=== PATIENT | female | born 1935 | race Two or more races ===

== ENCOUNTER 2016-11-28 02:08 | Emergency (ER) | payer OTHER ==
[~2016-11-28] VITALS: Ht 157.5 cm; Wt 62.1 kg
[2016-11-28] MEDS ORDERED: AZATHIOPRINE50 MG PO (02:27)
[2016-11-28] MEDS ORDERED: FOLIC ACID1 MG PO (02:27)
[2016-11-28] MEDS ORDERED: PRINIVIL10 MG PO (02:27)
[2016-11-28] MEDS ORDERED: PREDNISONE5 MG PO (02:28)
[2016-11-28] MEDS ORDERED: COREG3.125 M1 PO (02:28)
[2016-11-28] MEDS ORDERED: TIROSINT75 MCG PO (02:28)
[2016-11-28] MEDS ORDERED: FE C TABLET1 EACH PO (02:29)
[2016-11-28] MEDS ORDERED: LIPITOR80 MG PO (02:29)
[2016-11-28] MEDS ORDERED: VITAMIN D-32000 UNI2 PO (02:29)
[2016-11-28] MEDS ORDERED: VITAMIN B-1100 MG PO (02:30)
[2016-11-28] MEDS ORDERED: CALCIUM CARBON300 MG PO (02:30)
[2016-11-28] MEDS ORDERED: ASPIRIN81 M2 PO (02:31)
[2016-11-28] MEDS ORDERED: LOVAZA1 GM PO (02:31)
[2016-11-28] MEDS ORDERED: HYDROCHLOROTH12.5 M3 PO (02:31)
[2016-11-28] MEDS ORDERED: PLAVIX75 MG PO (02:31)
[2016-11-28] MEDS ORDERED: PEPCID40 MG PO (04:24)
[2016-11-28] MEDS ORDERED: PREDNISONE20 MG PO (04:24)
[2016-11-28] MEDS ORDERED: BENADRYL25 MG PO (04:24)
[2016-11-28 05:11] VITALS: BP 185/70
== END 2016-11-28 05:12 | disposition home or self-care (01) ==
LOC: EME 02:08
DX: L50.9 Urticaria, unspecified (principal); E11.9 Type 2 diabetes mellitus without complications; E78.5 Hyperlipidemia, unspecified; I10 Essential (primary) hypertension; Z95.1 Presence of aortocoronary bypass graft; Z79.82 Long term (current) use of aspirin
CPT/HCPCS: 99281; 99285; J1200; J2930; S0028

== ENCOUNTER 2017-02-27 18:31 | Emergency (ER) | payer OTHER ==
[~2017-02-27] VITALS: Ht 157.5 cm; Wt 65.0 kg
[~2017-02-27 18:31] MED LIST: ASPIRIN81 M2 PO; AZATHIOPRINE50 MG PO; BENADRYL25 MG PO; CALCIUM CARBON300 MG PO; COREG3.125 M1 PO; FE C TABLET1 EACH PO; FOLIC ACID1 MG PO; HYDROCHLOROTH12.5 M3 PO; LIPITOR80 MG PO; LOVAZA1 GM PO; PEPCID40 MG PO; PLAVIX75 MG PO; PREDNISONE20 MG PO; PREDNISONE5 MG PO; PRINIVIL10 MG PO; TIROSINT75 MCG PO; VITAMIN B-1100 MG PO; VITAMIN D-32000 UNI2 PO
[2017-02-27 19:52] LABS: HEMATOCRIT 37.2 % (36.0-46.0); HEMOGLOBIN 12.7 G/DL (11.9-15.5); MCH 35.5 PG (29.0-34.0); MCHC 34.1 G/DL (30.0-36.0); MCV 103.9 FL (83-99); PLATELET COUNT 108 K/uL (156-360); RBC DIS.WIDTH-CV 13.2 % (11.8-14.6); RBC DIS.WIDTH-SD 49.6 % (39-53); RED BLOOD COUNT 3.58 M/uL (3.80-5.20)
[2017-02-27 20:00] LABS: CHLORIDE 106 mEq/L (99-109); POTASSIUM 4.5 mEq/L (3.7-5.4); SODIUM 139 mEq/L (136-147)
[2017-02-27 20:02] LABS: GLUCOSE 298 mg/dL (70-99)
[2017-02-27 20:06] LABS: GFR ESTIMATE (CALCULATED) 56 mL/min/; UREA NITROGEN (BUN) 28 mg/dL (9-23)
[2017-02-27 20:59] LABS: APPEARANCE CLEAR ((CLEAR)); BILIRUBIN NEGATIVE; BLOOD NEGATIVE; COLOR YELLOW ((YELLOW)); GLUCOSE (STRIP) 150; KETONES NEGATIVE; LEUKOCYTES NEGATIVE; NITRITE NEGATIVE; PROTEIN (STRIP) 30; SPECIFIC GRAVITY 1.017 (1.000-1.030); UCUL ADDED? NO; UROBILINOGEN 0.2 MG/DL (0.2-1.0)
[2017-02-27 21:39] LABS: THYROTROPIN (TSH) 0.55 MIU/L (0.4-5.5)
[2017-02-27 22:28] LABS: TROP-I INTERPRETATION NEGATIVE; TROPONIN-I 0.03 ng/mL (0.0-0.30)
[2017-02-27 23:31] VITALS: BP 191/61
== END 2017-02-28 00:13 | disposition home or self-care (01) ==
LOC: EME 18:31
DX: R19.7 Diarrhea, unspecified (principal); R94.31 Abnormal electrocardiogram [ECG] [EKG]; E11.9 Type 2 diabetes mellitus without complications; I11.0 Hypertensive heart disease with heart failure; I50.9 Heart failure, unspecified; E78.5 Hyperlipidemia, unspecified; Z87.891 Personal history of nicotine dependence; Z79.02 Long term (current) use of antithrombotics/antiplatelets; Z79.82 Long term (current) use of aspirin; Z95.1 Presence of aortocoronary bypass graft; Z85.9 Personal history of malignant neoplasm, unspecified; Z88.5 Allergy status to narcotic agent; Z88.6 Allergy status to analgesic agent
CPT/HCPCS: 80048; 81003; 83880; 84443; 84484; 85027; 87493; 93005